=== PATIENT | female | born 1955 ===

== ENCOUNTER → 2022-10-20 13:37 | Outpatient (CLI) | payer MEDICARE, SELFPAY ==
--- NOTE | ~2022-10-20 | XR_ITS ---
Cervical Spine: AP, lateral, open-mouth views Clinical History: Pain Findings: The normal lordotic curve is maintained. The vertebral bodies and posterior elements appea r intact. There is mild degenerative disc narrowing at C5-C6 and C6-C7. Pre-vertebral soft tissues ar e unremarkable. Impression: Mild degenerative disc changes C5-C6 and C6-C7. Reviewed, dictated and finalized at [facility]. Impression: Mild degenerative disc changes C5-C6 and C6-C7.
== END ==
PROVIDERS: PCP Family Medicine; Visit Provider Nurse Practitioner Family
DX: M47.812 Spondylosis without myelopathy or radiculopathy, cervical region (principal); M50.323 Other cervical disc degeneration at C6-C7 level
CPT/HCPCS: 72040